=== PATIENT | male | born 1950 | race Caucasian/White ===

== ENCOUNTER 2018-10-23 07:09 | Inpatient (IN) | payer MEDICARE ==
[~2018-10-23] VITALS: Ht 188 cm; Wt 99.0 kg
[2018-10-23 07:57] LABS: BASOPHILS ABSOLUTE AUTO 0.04 K/mm3 (0.00-0.23); BASOPHILS PERCENT AUTO 1 % (0-2); EOSINOPHILS PERCENT AUTO 0 % (0-6); Hematocrit 25.8 % (37.0-53.0); Hemoglobin 8.2 g/dL (13.5-17.5); IMMATURE GRAN ABSOLUTE AUTO 0.05 K/mm3 (0.00-0.10); IMMATURE GRAN PERCENT AUTO 1 % (0-1); LYMPHOCYTES ABSOLUTE AUTO 0.38 K/mm3 (0.84-5.20); LYMPHOCYTES PERCENT AUTO 6 % (21-46); MONOCYTES ABSOLUTE AUTO 0.49 K/mm3 (0.16-1.47); MONOCYTES PERCENT AUTO 8 % (4-13); Mean Corpuscular HGB 26.6 pg (26.0-34.0); Mean Corpuscular HGB Conc 31.8 g/dL (31.5-36.5); Mean Corpuscular Volume 84 fL (80-100); Mean Platelet Volume 9.5 fL (9.1-12.4); NEUTROPHILS ABSOLUTE AUTO 5.16 K/mm3 (1.96-9.15); NEUTROPHILS PERCENT AUTO 84 % (41-73); Platelet Count 95 K/mm3 (150-400); RDW Coefficient Variation 14.6 % (11.7-14.2); RDW Standard Deviation 44.4 fL (35.1-46.3); Red Blood Cell Count 3.08 M/mm3 (4.30-5.90); White Blood Cell Count 6.12 K/mm3 (4.00-11.30)
[2018-10-23 08:12] LABS: Alanine Aminotransfer (ALT/SGP 17 U/L (12-78); Albumin, Blood 2.7 g/dL (3.4-5.0); Albumin/Globulin Ratio 0.5 (0.8-1.8); Alk Phos 102 U/L (50-136); Anion Gap 11 mmol/L (6-16); Aspartate Aminotrans (AST/SGOT 26 U/L (12-37); Bilirubin, Total 0.6 mg/dL (0.1-1.0); Blood Urea Nitrogen 31 mg/dL (8-24); Bun/Creatinine Ratio 24.8 (12.0-20.0); CO2, Blood 26 mmol/L (21-32); Calcium, Blood 8.4 mg/dL (8.5-10.1); Chloride, Blood 100 mmol/L (98-108); Creatinine, Blood 1.25 mg/dL (0.60-1.20); Globulin, Blood 5.6 g/dL (2.2-4.0); Glomerular Filtration Rate >60 (60-); Glucose, Blood 370 mg/dL (70-99); Potassium, Blood 4.9 mmol/L (3.5-5.5); Sodium, Blood 137 mmol/L (136-145); Total Protein, Blood 8.3 g/dL (6.4-8.2); Troponin I 0.097 ng/mL (0.000-0.040)
[2018-10-23 08:51] LABS: International Normalized Ratio 1.04
[2018-10-23] MEDS ORDERED: ABAT250V (09:10)
[2018-10-23 11:25] LABS: U Amphetamine Screen Not Detected; U Barbituate Screen Not Detected; U Benzodiazapine Screen Not Detected; U Buprenorphine Screen Not Detected; U Cannabinoids Screen Not Detected; U Cocaine Screen Not Detected; U Methadone Screen Not Detected; U Methamphetamine Screen Not Detected; U Opiates Screen Not Detected; U Oxycodone Screen Not Detected; U Phencyclidine Screen Not Detected; U Propoxyphene Screen Not Detected
[2018-10-23] MEDS ORDERED: **incomplete med rec (12:02)
--- NOTE | 2018-10-23 12:20 | NUR ---
PT TO ROOM 214 VIA GURNEY FROM ER. PT ALERT AND ORIENTED. PT WITH 18G IV TO LEFT WRIST, FLUSHES WELL.
--- NOTE | 2018-10-23 12:54 | NUR ---
NEW 18G IV TO RIGHT FA STARTED. PT AHSAN WELL. BLOOD DRAWN FOR LAB.
--- NOTE | 2018-10-23 13:11 | NUR ---
LAB AT BEDSIDE FOR CULTURES.
[2018-10-23] MEDS ORDERED: FURO40 PO (13:12)
[2018-10-23] MEDS ORDERED: Inderal 20 mg T20 MG PO (13:13)
[2018-10-23] MEDS ORDERED: Aldactone100 MG PO (13:14)
[2018-10-23] MEDS ORDERED: LACT10SY PO (13:15)
[2018-10-23 13:21] LABS: Hematocrit 27.9 % (37.0-53.0); Hemoglobin 8.8 g/dL (13.5-17.5)
[2018-10-23 14:03] LABS: Troponin I 0.113 ng/mL (0.000-0.040)
[2018-10-23 14:04] LABS: Percent Saturation 10.8 % (20.0-50.0)
--- NOTE | 2018-10-23 14:18 | NUR ---
IVF STARTED PER EMAR ORDERS. ROCEPHIN STARTED. PT STATES PAIN IS COMING BACK. PT NOT DUE FOR MEDS. WILL ADDRESS WITH PROVIDER. PT WATCHING TV.
--- NOTE | 2018-10-23 14:27 | NUR ---
CONSULT TO DR DU CALLED. SPOKE WITH OR STAFF.
--- NOTE | 2018-10-23 14:59 | NUR ---
abx started per emar orders.
--- NOTE | 2018-10-23 16:22 | NUR ---
DR DU TO ROOM FOR EVAL. PLAN FOR CT OF HIP, NPO AT MIDNIGHT. PLAN FOR POSS SURG TOMORROW.
--- NOTE | 2018-10-23 16:29 | NUR ---
Echocardiogram completed.
--- NOTE | 2018-10-23 16:40 | NUR ---
PT AWARE THAT HE WILL POSS HAVE SURGERY TOMORROW. PLAN TO PROVIDE DINNER TONIGHT. PT DENIES NEEDS.
--- NOTE | 2018-10-23 16:46 | NUR ---
pt medicated with 25mcg fentanyl prior to tx to ct.
--- NOTE | 2018-10-23 17:05 | NUR ---
PT RETURNED FROM IMAGING. ASSISTED BACK TO BED WITH MULT STAFF AND SLIDING SHEET. PT BOOSTED UP IN BED. ADDITIONAL PILLOW AND WARM BLANKET PROVIDED. PT WATCHING TV.
--- NOTE | 2018-10-23 17:27 | NUR ---
DINNER TRAY PROVIDED. denies needs.
--- NOTE | 2018-10-23 17:43 | NUR ---
pt eating. cbg 195, repeat lactic acid drawn and sent to lab. pt niece to room. provided phone number in case family needed. she is the only family member that is local.
--- NOTE | 2018-10-23 18:41 | NUR ---
WATER CUP FILLED. [facility] [place] [place] STUDENT TO ROOM FOR INTRODUCTION.
--- NOTE | 2018-10-23 18:51 | NUR ---
On this day 10/23/18 at 1845 this patient gave this nursing program coordinator verbal consent to access records and provide care on 10/24/18 from [id number].
[2018-10-24 05:22] LABS: BASOPHILS ABSOLUTE AUTO 0.06 K/mm3 (0.00-0.23); BASOPHILS PERCENT AUTO 1 % (0-2); EOSINOPHILS ABSOLUTE AUTO 0.16 K/mm3 (0.00-0.68); EOSINOPHILS PERCENT AUTO 2 % (0-6); Hematocrit 25.2 % (37.0-53.0); Hemoglobin 7.8 g/dL (13.5-17.5); IMMATURE GRAN ABSOLUTE AUTO 0.03 K/mm3 (0.00-0.10); IMMATURE GRAN PERCENT AUTO 0 % (0-1); LYMPHOCYTES PERCENT AUTO 13 % (21-46); MONOCYTES ABSOLUTE AUTO 0.59 K/mm3 (0.16-1.47); MONOCYTES PERCENT AUTO 8 % (4-13); Mean Corpuscular HGB 26.5 pg (26.0-34.0); Mean Corpuscular Volume 86 fL (80-100); Mean Platelet Volume 9.9 fL (9.1-12.4); NEUTROPHILS PERCENT AUTO 76 % (41-73); Platelet Count 85 K/mm3 (150-400); RDW Coefficient Variation 14.7 % (11.7-14.2); RDW Standard Deviation 45.7 fL (35.1-46.3); Red Blood Cell Count 2.94 M/mm3 (4.30-5.90); White Blood Cell Count 7.64 K/mm3 (4.00-11.30)
--- NOTE | 2018-10-24 05:42 | NUR ---
LYING IN SEMI FOWLERS WITH EYES CLOSED. PRN PAIN MEDS GIVEN NEEDED. DENIES FURTHER NEEDS AT THIS TIME. VERBALIZES THAT HE IS LOOKING FORWARD TO GETTING THIS HIP FIXED TODAY. SAFETY MEASURES IN PLACE. WILL CONTINUE TO MONITOR.
[2018-10-24 05:48] LABS: Bun/Creatinine Ratio 25.7 (12.0-20.0); Calcium, Blood 8.2 mg/dL (8.5-10.1); Creatinine, Blood 1.44 mg/dL (0.60-1.20); Potassium, Blood 4.9 mmol/L (3.5-5.5)
--- NOTE | 2018-10-24 07:00 | NUR ---
REPORT FROM NANETTE GRIFFIN. ASSUMED PT CARE.
--- NOTE | 2018-10-24 07:15 | NUR ---
PT LYING IN POSITION OF COMFORT. PT C/O PAIN TO RIGHT HIP 12/28. PT ALERT AND ORIENTED. ASSESSMENT CHARTED.
--- NOTE | 2018-10-24 07:45 | NUR ---
LETSER FIERRO TO ROOM TO UPDATE PT. PLAN TO NOTIFY HOSPITALIST OF H/H TODAY. ORTHO WANTS PT TRANSFUSED. NO LONGER NPO. PLAN TO HOLD SURGERY TODAY.
--- NOTE | 2018-10-24 08:00 | NUR ---
SPOKE WITH DR BECKMAN RE PT LAB VALUES TODAY AND PT C/O PAIN. DR BECKMAN TO ORDER TRANSFUSION AND EDIT FENTANYL.
--- NOTE | 2018-10-24 08:30 | NUR ---
LAB AT BEDSIDE TO DRAW TYPE AND SCREEN.
--- NOTE | 2018-10-24 08:50 | NUR ---
PT UNDERWEAR REMOVED TO PLACE ON BEDPAN. SOFT BROWN STOOL NOTED TO UNDERWEAR. REMOVED AND THROWN AWAY (WITH PT PERMISSION). PT PLACED ON BEDPAN WITH ASSISTANCE OF MEG.
--- NOTE | 2018-10-24 09:00 | NUR ---
PT WITH MODERATE SIZE SOFT BROWN STOOL. PERICARE DONE. BEDLINENS CHANGED. NEW GOWN PLACED. SPECIMEN SENT TO LAB.
--- NOTE | 2018-10-24 09:20 | NUR ---
PT MEDICATED WITH MEDS PER EMAR. FENTANYL 50MCG GIVEN FOR C/O PAIN. WILL REASSESS.
--- NOTE | 2018-10-24 10:00 | NUR ---
pt more comfortable at this time. pt denies needs.
--- NOTE | 2018-10-24 10:25 | NUR ---
ivf started. pt consented to blood products. hosp volunteer to room.
--- NOTE | 2018-10-24 10:36 | NUR ---
BLOOD STARTED, VERIFIED WITH HESHAM Bennett RN. VS CHARTED.
--- NOTE | 2018-10-24 12:27 | NUR ---
pt medicated with fentanyl for c/o pain. insulin given for cbg of 230. pt eating lunch.
--- NOTE | 2018-10-24 12:57 | NUR ---
UNIT ONE OF TWO COMPLETE. AHSAN WELL. PT ATE MOST OF LUNCH. PT ATTEMPT TO READ. DOZES OFF. STATES PAIN IMPROVED.
--- NOTE | 2018-10-24 13:08 | NUR ---
UNIT TWO OF TWO STARTED. PT RESTING IN POSITION OF COMFORT.
[2018-10-24 14:18] LABS: Stool Occult Blood Guaiac 1 Pos (Neg)
--- NOTE | 2018-10-24 16:12 | NUR ---
PT MEDICATED WITH 50MCG FENTANYL FOR PAIN 03/30. PT WITH SCANT BM, PERICARE PERFORMED WITH HELP OF [facility] STUDENTS. PT AHSAN OK.
--- NOTE | 2018-10-24 16:14 | NUR ---
Patient stated that he allowed this certified nursing attendant to be a part of his care on 10/25/18
--- NOTE | 2018-10-24 16:23 | NUR ---
PT TO IMAGING FOR PARACENTESIS.
--- NOTE | 2018-10-24 17:14 | NUR ---
MEDS STARTED PER EMAR. PT MORE COMFORTABLE.
--- NOTE | 2018-10-24 17:44 | NUR ---
3 UNITS INSULIM GIVEN. OTHER MEDS STARTED PER EMAR. PT EATING. NADN.
--- NOTE | 2018-10-24 18:19 | NUR ---
SCDS SET UP.
--- NOTE | 2018-10-24 19:14 | NUR ---
PT LYING IN POSITION OF COMFORT.
[2018-10-25 06:11] LABS: BASOPHILS ABSOLUTE AUTO 0.09 K/mm3 (0.00-0.23); BASOPHILS PERCENT AUTO 1 % (0-2); EOSINOPHILS ABSOLUTE AUTO 0.27 K/mm3 (0.00-0.68); EOSINOPHILS PERCENT AUTO 4 % (0-6); Hematocrit 28.3 % (37.0-53.0); Hemoglobin 9.1 g/dL (13.5-17.5); IMMATURE GRAN ABSOLUTE AUTO 0.07 K/mm3 (0.00-0.10); IMMATURE GRAN PERCENT AUTO 1 % (0-1); LYMPHOCYTES ABSOLUTE AUTO 0.96 K/mm3 (0.84-5.20); LYMPHOCYTES PERCENT AUTO 13 % (21-46); MONOCYTES ABSOLUTE AUTO 0.75 K/mm3 (0.16-1.47); MONOCYTES PERCENT AUTO 10 % (4-13); Mean Corpuscular HGB 27.7 pg (26.0-34.0); Mean Corpuscular HGB Conc 32.2 g/dL (31.5-36.5); Mean Corpuscular Volume 86 fL (80-100); Mean Platelet Volume 9.6 fL (9.1-12.4); NEUTROPHILS ABSOLUTE AUTO 5.22 K/mm3 (1.96-9.15); NEUTROPHILS PERCENT AUTO 71 % (41-73); Platelet Count 84 K/mm3 (150-400); RDW Standard Deviation 47.1 fL (35.1-46.3); Red Blood Cell Count 3.29 M/mm3 (4.30-5.90); White Blood Cell Count 7.36 K/mm3 (4.00-11.30)
[2018-10-25 06:30] LABS: Albumin, Blood 2.4 g/dL (3.4-5.0); Anion Gap 7 mmol/L (6-16); Blood Urea Nitrogen 37 mg/dL (8-24); Bun/Creatinine Ratio 26.2 (12.0-20.0); CO2, Blood 26 mmol/L (21-32); Calcium, Blood 8.3 mg/dL (8.5-10.1); Chloride, Blood 103 mmol/L (98-108); Creatinine, Blood 1.41 mg/dL (0.60-1.20); Glomerular Filtration Rate 53 (60-); Glucose, Blood 177 mg/dL (70-99); Phosphorus, Blood 3.1 mg/dL (2.5-4.9); Potassium, Blood 4.8 mmol/L (3.5-5.5); Sodium, Blood 136 mmol/L (136-145)
--- NOTE | 2018-10-25 07:36 | NUR ---
SUMMARY: NO ACUTE TOP CAGER NIGHT. PT VSS, A/O. TELE WNL. CSM INTACT TO R LEG, POSITIONED FOR COMFORT. PT GIVEN 50MCG FENTANYAL Q4. PT HAS DENIED NEED TO BE REPOSITIONED, STATES "IM OK" AND THAT HE REPOSITIONS HIMSELF. NO BM TONIGHT, PROTONIX DRIP INFUSING. NO S/SX OF ETOH WITHDRAWAL. WILL REPORT TO DAY RN
[2018-10-25 14:46] LABS: BASOPHILS ABSOLUTE AUTO 0.09 K/mm3 (0.00-0.23); BASOPHILS PERCENT AUTO 1 % (0-2); EOSINOPHILS ABSOLUTE AUTO 0.25 K/mm3 (0.00-0.68); EOSINOPHILS PERCENT AUTO 4 % (0-6); Hematocrit 26.8 % (37.0-53.0); Hemoglobin 8.7 g/dL (13.5-17.5); IMMATURE GRAN ABSOLUTE AUTO 0.06 K/mm3 (0.00-0.10); IMMATURE GRAN PERCENT AUTO 1 % (0-1); LYMPHOCYTES ABSOLUTE AUTO 0.83 K/mm3 (0.84-5.20); LYMPHOCYTES PERCENT AUTO 12 % (21-46); MONOCYTES ABSOLUTE AUTO 0.67 K/mm3 (0.16-1.47); MONOCYTES PERCENT AUTO 10 % (4-13); Mean Corpuscular HGB 28.2 pg (26.0-34.0); Mean Corpuscular HGB Conc 32.5 g/dL (31.5-36.5); Mean Corpuscular Volume 87 fL (80-100); Mean Platelet Volume 9.7 fL (9.1-12.4); NEUTROPHILS ABSOLUTE AUTO 4.84 K/mm3 (1.96-9.15); NEUTROPHILS PERCENT AUTO 72 % (41-73); Platelet Count 85 K/mm3 (150-400); RDW Coefficient Variation 15.1 % (11.7-14.2); RDW Standard Deviation 47.9 fL (35.1-46.3); Red Blood Cell Count 3.09 M/mm3 (4.30-5.90); White Blood Cell Count 6.74 K/mm3 (4.00-11.30)
--- NOTE | 2018-10-25 18:41 | NUR ---
PT TO IMAGING BY JUAN MIGUEL. PT TRANSFERRED WITH MULT ASSIST.
--- NOTE | 2018-10-25 18:41 | NUR ---
SHIFT SUMMARY PT NOW TOLERATING C.L. DR BLAIR AND OTHER DR'S IN TO SEE PT. SEE ORDERS. PT BEEN REPOSITIONED MULT TIMES, FEET ELEVATED ON PILLOW. PT VOIDING. PT HAD BM TODAY. PT REPORTS UNDERSTANDING OF NPO AFTER MN. PAS BEEN IN PLACE.
[2018-10-25 19:52] LABS: Source, Urine Catheter
[2018-10-25 20:32] LABS: Bilirubin, Urine Neg (Neg); Blood, Urine 5+ (Neg); Glucose Qualitative, Urine 4+ (Neg); Ketones, Urine Neg (Neg); Leukocyte Esterase, Urine 1+ (Neg); Nitrite, Urine Neg (Neg); Protein, Urine 2+ (Neg); Urobilinogen, Urine NORM (Normal)
[2018-10-25 20:54] LABS: Appearance, Urine Hazy (Clear); Color, Urine Yellow (P-Yellow)
[2018-10-25 20:55] LABS: Bacteria Rare /hpf; Squamous Epithelial Cells Few /hpf (Few)
--- NOTE | 2018-10-26 04:48 | NUR ---
SHIFT SUMMARY PT A&O X4 T/O SHIFT. POST R HIP FX; PT REPOSITIONED TOLERATED. REDNESS TO L HEEL NOTED; PT ALLOWED HEEL TO BE FLOATED. SCD'S TO BLE'S. PAIN MANGED PER EMAR. CHRONIC COUGH, LS DIM BILAT, RA; PT DENIES SOB; EDUCATION ON SEEP BREATHING AND I/S USE; I/S AT BEDSIDE. TELEMETRY IN PLACE; SR WITH OCC PAC'S. CALL LIGHT IN REACH; PT DEMONSTRATES USE. BLOOD SUGAR MANGED PER ORDERS/EMAR. PT NPO POST MIDNIGHT.
[2018-10-26 05:02] LABS: BASOPHILS ABSOLUTE AUTO 0.08 K/mm3 (0.00-0.23); BASOPHILS PERCENT AUTO 1 % (0-2); EOSINOPHILS ABSOLUTE AUTO 0.23 K/mm3 (0.00-0.68); EOSINOPHILS PERCENT AUTO 3 % (0-6); Hematocrit 27.3 % (37.0-53.0); Hemoglobin 8.6 g/dL (13.5-17.5); IMMATURE GRAN ABSOLUTE AUTO 0.06 K/mm3 (0.00-0.10); IMMATURE GRAN PERCENT AUTO 1 % (0-1); LYMPHOCYTES ABSOLUTE AUTO 1.11 K/mm3 (0.84-5.20); LYMPHOCYTES PERCENT AUTO 16 % (21-46); MONOCYTES ABSOLUTE AUTO 0.92 K/mm3 (0.16-1.47); MONOCYTES PERCENT AUTO 13 % (4-13); Mean Corpuscular HGB 27.4 pg (26.0-34.0); Mean Corpuscular HGB Conc 31.5 g/dL (31.5-36.5); Mean Corpuscular Volume 87 fL (80-100); Mean Platelet Volume 9.6 fL (9.1-12.4); NEUTROPHILS ABSOLUTE AUTO 4.62 K/mm3 (1.96-9.15); NEUTROPHILS PERCENT AUTO 66 % (41-73); Platelet Count 98 K/mm3 (150-400); RDW Coefficient Variation 15.3 % (11.7-14.2); RDW Standard Deviation 48.1 fL (35.1-46.3); Red Blood Cell Count 3.14 M/mm3 (4.30-5.90); White Blood Cell Count 7.02 K/mm3 (4.00-11.30)
[2018-10-26 05:25] LABS: Albumin, Blood 2.3 g/dL (3.4-5.0); Anion Gap 7 mmol/L (6-16); Blood Urea Nitrogen 36 mg/dL (8-24); Bun/Creatinine Ratio 25.7 (12.0-20.0); CO2, Blood 25 mmol/L (21-32); Calcium, Blood 8.1 mg/dL (8.5-10.1); Chloride, Blood 104 mmol/L (98-108); Glomerular Filtration Rate 54 (60-); Glucose, Blood 148 mg/dL (70-99); Phosphorus, Blood 3.2 mg/dL (2.5-4.9); Potassium, Blood 4.3 mmol/L (3.5-5.5); Sodium, Blood 136 mmol/L (136-145)
--- NOTE | 2018-10-26 11:43 | NUR ---
PATIENT TO DAY SURGERY AT THIS TIME.
--- NOTE | 2018-10-26 11:52 | NUR ---
History, Chart, Medications and Allergies reviewed before start of procedure. LS CLEAR UPPER AIRWAY, DIMINISHED IN THE BASES. IV START IN PROCESS BY GUANAKITO GRIFFIN.
--- NOTE | 2018-10-26 12:48 | NUR ---
[facility] KAVITHAO STARTED AT 1158 PRIOR TO ENTERING OR.
--- NOTE | 2018-10-26 15:50 | NUR ---
PATIENT RETURNED TO ROOM FROM PACU. ALERT, DENIES PAIN, NAUSEA AT THIS TIME. VSS. HRR. LS COARSE T/O. O2 @ 2L PER NC TO KEEP SATS > 90%. BT'S HYPO. SURGICAL TAPE/DRESSING TO R THIGH X 2, D&I. WIGGLES FEET. PAS IN PLACE. CIRC CHECKS WNL. CONT BIOX PLACED BY RT. CONT TO MONITOR.
--- NOTE | 2018-10-26 18:06 | NUR ---
SHIFT SUMMARY PATIENT STATES PAIN AT TOLERABLE LEVEL WITH IV AND PO PAIN MEDS. TOLERATING PO WELL. VSS. CIRC CHECKS TO RLE WNL; MOVES LEG. DRESSINGS D&I. IS ENCOURAGAED. NO C/O AT THIS TIME.
--- NOTE | 2018-10-27 04:05 | NUR ---
SHIFT SUMMARY PT A&O X4 T/O SHIFT. POD#1 R HIP NAILING; DRESSINGS TO R HIP CDI X2 SITES. PPX4; PT DENIES N/T IN EXT; ALL EXT PWD. PAIN MANGED PER EMAR. NAYA'S AND SCD'S TO BLE'S. PT DENIES NAUSA, SOB, AND CP T/O SHIFT. O2 WEANED TO 1L O2 VIA NC; CONT. OXIMETRY IN PLACE; SATURATION MID-90%. IS IN ROOM; PT ENC TO DEEP BREATH AND TURN. PT ASSISTED WITH REPOSITION PT ALLOWED. CALL LIGHT IN REACH; PT DEMONSTRATES USE. WCTM UNTIL REPORT TO DAY SHIFT RN.
[2018-10-27 05:31] LABS: BASOPHILS ABSOLUTE AUTO 0.04 K/mm3 (0.00-0.23); BASOPHILS PERCENT AUTO 1 % (0-2); EOSINOPHILS ABSOLUTE AUTO 0.03 K/mm3 (0.00-0.68); EOSINOPHILS PERCENT AUTO 0 % (0-6); Hematocrit 26.5 % (37.0-53.0); Hemoglobin 8.5 g/dL (13.5-17.5); IMMATURE GRAN ABSOLUTE AUTO 0.03 K/mm3 (0.00-0.10); IMMATURE GRAN PERCENT AUTO 0 % (0-1); LYMPHOCYTES PERCENT AUTO 10 % (21-46); MONOCYTES ABSOLUTE AUTO 0.89 K/mm3 (0.16-1.47); MONOCYTES PERCENT AUTO 13 % (4-13); Mean Corpuscular HGB 28.2 pg (26.0-34.0); Mean Corpuscular HGB Conc 32.1 g/dL (31.5-36.5); Mean Corpuscular Volume 88 fL (80-100); NEUTROPHILS ABSOLUTE AUTO 5.37 K/mm3 (1.96-9.15); NEUTROPHILS PERCENT AUTO 76 % (41-73); Platelet Count 98 K/mm3 (150-400); RDW Coefficient Variation 15.5 % (11.7-14.2); RDW Standard Deviation 49.5 fL (35.1-46.3); Red Blood Cell Count 3.01 M/mm3 (4.30-5.90); White Blood Cell Count 7.06 K/mm3 (4.00-11.30)
[2018-10-27 06:19] LABS: Bun/Creatinine Ratio 26.1 (12.0-20.0); Creatinine, Blood 1.53 mg/dL (0.60-1.20); Magnesium, Blood 1.9 mg/dL (1.6-2.4); Potassium, Blood 5.2 mmol/L (3.5-5.5)
[2018-10-27 08:13] LABS: HBSAG SCREEN Negative (Negative); HEP B CORE AB, TOT Negative (Negative); HEP C VIRUS AB 0.4 (0.0-0.9)
--- NOTE | 2018-10-27 17:38 | NUR ---
SUMMARY NO ACUTE CHANGES T/O SHIFT. PT PAIN WELL CONTROLLED PER EMAR. WORKED W/THERAPY. SAT UP IN CHAIR MOST OF SHIFT. COVERED CBG PER ORDERS. CALL LIGHT IN REACH.
[2018-10-28 05:50] LABS: BASOPHILS ABSOLUTE AUTO 0.07 K/mm3 (0.00-0.23); BASOPHILS PERCENT AUTO 1 % (0-2); EOSINOPHILS ABSOLUTE AUTO 0.29 K/mm3 (0.00-0.68); EOSINOPHILS PERCENT AUTO 4 % (0-6); Hematocrit 28.7 % (37.0-53.0); IMMATURE GRAN ABSOLUTE AUTO 0.04 K/mm3 (0.00-0.10); IMMATURE GRAN PERCENT AUTO 1 % (0-1); LYMPHOCYTES ABSOLUTE AUTO 0.89 K/mm3 (0.84-5.20); LYMPHOCYTES PERCENT AUTO 14 % (21-46); MONOCYTES ABSOLUTE AUTO 0.92 K/mm3 (0.16-1.47); MONOCYTES PERCENT AUTO 14 % (4-13); Mean Corpuscular HGB 27.4 pg (26.0-34.0); Mean Corpuscular HGB Conc 31.4 g/dL (31.5-36.5); Mean Corpuscular Volume 88 fL (80-100); NEUTROPHILS ABSOLUTE AUTO 4.33 K/mm3 (1.96-9.15); NEUTROPHILS PERCENT AUTO 66 % (41-73); Platelet Count 102 K/mm3 (150-400); Red Blood Cell Count 3.28 M/mm3 (4.30-5.90); White Blood Cell Count 6.54 K/mm3 (4.00-11.30)
--- NOTE | 2018-10-28 17:18 | NUR ---
SUMMARY NO ACUTE CHANGES T/O SHIFT. PT VOIDING WELL AND HAD BM. PAIN WELL CONTROLLED PER PO PAIN MEDS PER EMAR. WORKED W/THERAPY. SAT UP IN CHAIR FOR SEVERAL HOURS. USES CALL LIGHT APPROPRIATELY. IVS INFUSING W/O DIFFICULTY.
--- NOTE | 2018-10-29 06:06 | NUR ---
SHIFT SUMMARY: NO ACUTE CHANGES THIS SHIFT. TREATED 2X FOR PAIN c 10MG OXYCODONE. 2 PER ASSIST c TRANSFERS PT IS UNABLE TO BARE WT ON RLE. CIWA CONT TO BE NEG THIS SHIFT. PT IS ON 0.5 L VIA NC. PM CBG @ 184; 3 UNITS OF INSULIN ADMINISTERED PER MED SS. R HIP DRESSING IS C/D/I. SANDOSTATIN RUNNING @ 25 ML/HR. PT AWAITING SNF PLACEMENT. WILL CONT TO MONITOR AND PROVIDE CARE UNTIL PRESUMED BY ONCOMING RN.
--- NOTE | 2018-10-29 17:00 | NUR ---
DISCHARGE REPORT CALLED TO SNF. PT AGREEABLE FOR D/C. MOD ASSIST TO TRANSFER TO W/C.
== END 2018-10-29 16:55 | DRG 480 ==
LOC: ER 07:09 → SURS 11:54
PROVIDERS: Hospitalist; Internal Medicine Gastroenterology; Orthopaedic Surgery; Physician Assistant; ADMIT Family Medicine
PROC: 30233N1 Transfusion of Nonautologous Red Blood Cells into Peripheral Vein, Percutaneous Approach (ICD-10-PCS; 2018-10-24)
PROC: 0QS636Z Reposition Right Upper Femur with Intramedullary Internal Fixation Device, Percutaneous Approach (ICD-10-PCS; principal; 2018-10-26 12:30)
DX: S72.141A Displaced intertrochanteric fracture of right femur, initial encounter for closed fracture (principal); A41.9 Sepsis, unspecified organism; J18.9 Pneumonia, unspecified organism; R65.20 Severe sepsis without septic shock; I24.8 Other forms of acute ischemic heart disease; K92.2 Gastrointestinal hemorrhage, unspecified; N17.9 Acute kidney failure, unspecified; D62 Acute posthemorrhagic anemia; D69.6 Thrombocytopenia, unspecified; F10.10 Alcohol abuse, uncomplicated; W18.30XA Fall on same level, unspecified, initial encounter; K70.31 Alcoholic cirrhosis of liver with ascites; Z66 Do not resuscitate; B19.20 Unspecified viral hepatitis C without hepatic coma; D50.9 Iron deficiency anemia, unspecified; E11.22 Type 2 diabetes mellitus with diabetic chronic kidney disease; N18.9 Chronic kidney disease, unspecified
CPT/HCPCS: 36415; 71045; 71046; 72192; 73502; 73552; 76705; 80048; 80053; 80069; 81001; 82105; 82270; 82607; 82728; 82746; 82947; 83036; 83540; 83550; 83605; 83735; 84145; 84300; 84484; 85014; 85018; 85025; 85027; 85610; 86317; 86704; 86708; 86803; 86850; 86900; 86901; 86923; 87040; 87086; 87340; 93005; 93010; 93306; 94762; 96374; 96375; 97110; 97116; 97162; 97167; 97530; 99285-25; C1713; C1769; C9113; G0480; J0456; J0696; J1100; J1815; J2250; J2270; J2405; J2710; J3010; J3370; J3480; J7030; J7050; J7120; P9016

== ENCOUNTER 2019-05-14 10:31 | Inpatient (IN) | payer OTHER ==
[~2019-05-14] VITALS: Ht 188 cm; Wt 109.2 kg
[~2019-05-14 10:31] MED LIST: **incomplete med rec; ABAT250V; Aldactone100 MG PO; Augmentin 875-1 EACH PO; FERSU300 PO; FURO40 PO; Inderal 20 mg T20 MG PO; LACT10SY PO; Norco 7.5-3251 EACH PO; PANT20 PO
[2019-05-14 11:40] LABS: Source, Urine Catheter
[2019-05-14 11:42] LABS: Bilirubin, Urine Neg (Neg); Blood, Urine 1+ (Neg); Glucose Qualitative, Urine Neg (Neg); Ketones, Urine 1+ (Neg); Leukocyte Esterase, Urine 1+ (Neg); Nitrite, Urine Neg (Neg); Protein, Urine Neg (Neg); Specific Gravity, Urine 1.025 (1.003-1.022); Urobilinogen, Urine NORM (Normal)
[2019-05-14 11:47] LABS: BASOPHILS PERCENT AUTO 2 % (0-2); EOSINOPHILS ABSOLUTE AUTO 0.16 K/mm3 (0.00-0.68); EOSINOPHILS PERCENT AUTO 2 % (0-6); Hematocrit 28.4 % (37.0-53.0); IMMATURE GRAN ABSOLUTE AUTO 0.02 K/mm3 (0.00-0.10); IMMATURE GRAN PERCENT AUTO 0 % (0-1); LYMPHOCYTES ABSOLUTE AUTO 0.86 K/mm3 (0.84-5.20); LYMPHOCYTES PERCENT AUTO 13 % (21-46); MONOCYTES ABSOLUTE AUTO 0.63 K/mm3 (0.16-1.47); MONOCYTES PERCENT AUTO 9 % (4-13); Mean Corpuscular HGB 29.4 pg (26.0-34.0); Mean Corpuscular HGB Conc 31.7 g/dL (31.5-36.5); Mean Corpuscular Volume 93 fL (80-100); Mean Platelet Volume 9.6 fL (9.1-12.4); NEUTROPHILS ABSOLUTE AUTO 5.02 K/mm3 (1.96-9.15); NEUTROPHILS PERCENT AUTO 74 % (41-73); Platelet Count 104 K/mm3 (150-400); RDW Coefficient Variation 16.2 % (11.7-14.2); RDW Standard Deviation 53.9 fL (35.1-46.3); Red Blood Cell Count 3.06 M/mm3 (4.30-5.90); White Blood Cell Count 6.79 K/mm3 (4.00-11.30)
[2019-05-14 12:00] LABS: Albumin, Blood 2.2 g/dL (3.4-5.0); Albumin/Globulin Ratio 0.4 (0.8-1.8); Bilirubin, Total 0.8 mg/dL (0.1-1.0); Bun/Creatinine Ratio 10.5 (12.0-20.0); Calcium, Blood 8.1 mg/dL (8.5-10.1); Creatinine, Blood 3.05 mg/dL (0.60-1.20); Globulin, Blood 5.4 g/dL (2.2-4.0); Potassium, Blood 3.7 mmol/L (3.5-5.5); Total Protein, Blood 7.6 g/dL (6.4-8.2)
[2019-05-14 12:03] LABS: Appearance, Urine Clear (Clear); Color, Urine Yellow (P-Yellow)
[2019-05-14 12:04] LABS: Bacteria Rare /hpf; Granular Casts 0-2 /lpf (0); Hyaline Casts 0-2 /lpf (0-2); Red Blood Cells, Urine 0-2 /hpf (0-2); Squamous Epithelial Cells Not Seen /hpf (Few)
[2019-05-14] MEDS ORDERED: Augmentin 875-1 EACH PO (12:42)
[2019-05-14] MEDS ORDERED: HYDR1TAB94 PO (12:43)
[2019-05-14] MEDS ORDERED: ASCO500 PO (12:43)
--- NOTE | 2019-05-14 17:48 | NUR ---
PT ARRIVED TO THE FLOOR THIS AFTERNOON. PT ALERT, ORIENTED, AND COOPERATIVE. PT STATES PAIN IN THE RIGHT HIP. PT HAS URINARY CATHETER IN PLACE AFTER URINARY RETENTION THIS AFTERNOON. PT UP IN BED WITH SISTER AT BEDSIDE. PT STATES NO ADDITIONAL NEEDS AT THIS TIME.
--- NOTE | 2019-05-14 18:08 | NUR ---
TELEMETRY CALLED, PT HR TRENDING UP, IN THE 130'S. PT ASSESSED, ASYMPTOMATIC, NO PAIN. DR NOVA NOTIFIED, HE STATED HE WILL ORDER METOPROLOL.
--- NOTE | 2019-05-15 05:08 | NUR ---
SHIFT SUMMARY: LESLIE IS ALERT ORIENTED MALE, WHO IS A 1-2 PERSON ASSIST IN THE ROOM. HE HAS BEEN PLEANSANT ALL NIGHT, WITH SLEEPING OFF AND ON. COMPLAINS OF PAIN IN RIGHT HIP FROM RECENT HIP SURGERY THAT DID NOT HAVE GOOD SUCCESS. ESPARZA HAS REMAINED PATENT AND DRAINING. HE HAS NOT HAD ANY ACUTE CHANGES OR CONCERNS THIS SHIFT. MEDS WERE GIVEN PER EMAR. NORCO WAS GIVEN TWICE THIS SHIFT. METAPROLOL WAS GIVEN WITH SUCCESS OF A DECREASE HR OF 93. WILL REPORT TO DAY SHIFT RN.
[2019-05-15 05:26] LABS: Bun/Creatinine Ratio 14.3 (12.0-20.0); Creatinine, Blood 2.73 mg/dL (0.60-1.20); Potassium, Blood 4.3 mmol/L (3.5-5.5)
--- NOTE | 2019-05-15 18:16 | NUR ---
PT ALERT AND ORIENTED THROUGHOUT THIS SHIFT. PT COOPERATIVE WITH CARE. PT URINE OUTPUT APPROXIMATELY [address] NOVA HAS A UROLOGY CONSULT ORDERED. PT UNABLE TO PROVIDE SELF CARE DUE TO PAIN IN HIS RT HIP. PT CALM THROUGHOUT THIS SHIFT STATING NO ADDITIONAL NEEDS. WILL CONTINUE TO MONITOR.
[2019-05-16 05:08] LABS: Bun/Creatinine Ratio 15.1 (12.0-20.0); Calcium, Blood 8.1 mg/dL (8.5-10.1); Creatinine, Blood 2.79 mg/dL (0.60-1.20)
--- NOTE | 2019-05-16 07:29 | NUR ---
ASSUMED CARE OF PT- BEDSIDE REPORT COMPLETE WITH NIGHT RN LASHON. PER REPORT PT HAD AN EPISODE OF SEVERE SOB. DR NOTIFIED AND A STAT DOSE OF 40MG IV LASIX WAS ADMINISTERED. PT STATES BREATHING IS MUCH BETTER. PT HAS A ESPARZA IN PLACE THAT IS PATENT AND DRAINING. PT HAS EXTREME EDEMA IN THIGHS/TRUNCK/GROIN/SCROTUM. EDEMA IS VERY PAINFUL WITH MOVEMENT. PER REPORT NIGHT RN STATES TRUNCKAL EDEMA INCREASED FROM THE BASE OF THE RIBS UP TO THE 5TH INTERCOSTAL WHEN THE PT C/O SOB. EDEMA STILL PRESENT HOWEVER PT BREATHING HAS IMPROVED. PT WAS SEEN BY DR LICEA LAST NIGHT AND IS GOING FOR A SCOPE THIS AFTERNOON NPO AT 1400. PT IS AWARE. LABS SENT OUT FOR R/O HEPATITIS PT HAS ASCITES (PER REPORT) THAT MAY NEED TO BE TAPPED.
--- NOTE | 2019-05-16 07:52 | NUR ---
SHIFT SUMMARY: LESLIE IS A 69 Y/O MALE WHO IS A 1-2 PERSON ASSIST IN THE ROOM, HAS BEEN PLEASANT AND COOPERATIVE ALL NIGHT, SLEEPING OFF AND ON. COMPAINED OF PAIN IN THE RIGHT HIP WITH USE OF PAIN MEDS X2 THIS NIGHT. PATIENT CALLED RN TO ROOM THIS AM WITH REPORTS OF SOB AND DIFFICULTY GETTING HIS BREATH, INCREASE IN PAIN TO THE GROIN AREA. EDEMA HAD PROGRESSED FROM HIP LINE TO BREAST LINE, 4+ EDEMA, REPOSITIONED HIM, SATS AT 95%, BUT STILL COULD NOT CATCH HIS BREATH, URINE OUTPUT ONLY 100CC IN THE LAST 12 HOURS. CALLED MD AND GOT AN ORDER FOR 1 X LASIX, ADMINISTERED MEDS PER EMAR. AFTER 30 MINUTES HE REPORTED HE STARTED TO FEEL BETTER AND LESS PAIN IN GROIN, URINE OUTPUT WAS ANOTHER 100CC. PAIN MED WAS GIVEN. CALL LIGHT REMAINED IN REACH AND REPORT WAS GIVEN TO DAY SHIFT RN.
[2019-05-16 12:04] LABS: Automated BF WBC Count 0.064 K/mm3 (0-999); Body Fluid WBC Count 64 /mm3 (0-999)
[2019-05-16 12:17] LABS: Albumin, Body Fluid 0.4 g/dL; Glucose, Body Fluid 148 mg/dL; Lactate Dehydrogenase, Body Fl 56 U/L; Protein, Body Fluid 1.1 g/dL; pH, Body Fluid 7.7
[2019-05-16 12:49] LABS: RBC Count, Body Fluid 85 /mm3 (0-0)
[2019-05-16 12:56] LABS: Albumin, Blood 3.4 g/dL (3.4-5.0)
[2019-05-16 13:44] LABS: Total Cell Count, Body Fluid 100
[2019-05-16 13:45] LABS: Appearance, Body Fluid Hazy (Clear); Color, Body Fluid Yellow (None-Yellow)
--- NOTE | 2019-05-16 18:29 | NUR ---
"DAY SURGERY RN | REPORT TO DESEAN GRIFFIN."
--- NOTE | 2019-05-16 18:56 | NUR ---
SHIFT SUMMARY- PT ALERT AND ORIENTED. SPOKE TO DR MANCUSO THIS AM ABOUT THE SOB PT HAD LAST NIGHT, ORDERED PARACENTESIS AND THAT WAS DONE THIS AM, REMOVED 4L OF FLUID. PT ON IV ALBUMIN SCHEDULED. SPOKE TO DR MANCUSO HE WANTS STAFF TO HOLD THE MORNING DOSE UNTIL HE ROUNDS ON THE PT. PT HAS NOT RECIEVED ANY DIURETICS D/T RENAL FUNCTION. PT WENT DOWN FOR EGD THIS EVENING EVENING DOSE CARVEDILOL HELD PER DR MANCUSO.
--- NOTE | 2019-05-16 19:00 | NUR ---
05/16/191899 Meghan Major DR HERE TO PROVIDE ANESTHESIA CARE, PLEASE SEE RECORD. History, Chart, Medications and Allergies reviewed before start of procedure. MONITOR INTACT WITH CONTINUOUS PULSE OXIMETRY AND INTERMITTENT BP. O2 VIA POM INTACT THROUGHOUT SEDATION/PROCEDURE. Bite Block Placed.
[2019-05-17 04:07] LABS: HBSAG SCREEN Negative (Negative); HCV ANTIBODY <0.1 (0.0-0.9); HEP B CORE AB, TOT Negative (Negative)
[2019-05-17 05:10] LABS: BASOPHILS ABSOLUTE AUTO 0.02 K/mm3 (0.00-0.23); BASOPHILS PERCENT AUTO 0 % (0-2); EOSINOPHILS ABSOLUTE AUTO 0.17 K/mm3 (0.00-0.68); EOSINOPHILS PERCENT AUTO 3 % (0-6); Hematocrit 24.7 % (37.0-53.0); Hemoglobin 7.9 g/dL (13.5-17.5); IMMATURE GRAN ABSOLUTE AUTO 0.02 K/mm3 (0.00-0.10); IMMATURE GRAN PERCENT AUTO 0 % (0-1); LYMPHOCYTES PERCENT AUTO 14 % (21-46); MONOCYTES ABSOLUTE AUTO 0.41 K/mm3 (0.16-1.47); MONOCYTES PERCENT AUTO 8 % (4-13); Mean Corpuscular HGB 30.2 pg (26.0-34.0); Mean Corpuscular Volume 94 fL (80-100); Mean Platelet Volume 10.2 fL (9.1-12.4); NEUTROPHILS ABSOLUTE AUTO 3.76 K/mm3 (1.96-9.15); NEUTROPHILS PERCENT AUTO 74 % (41-73); Platelet Count 53 K/mm3 (150-400); RDW Coefficient Variation 16.5 % (11.7-14.2); RDW Standard Deviation 54.9 fL (35.1-46.3); Red Blood Cell Count 2.62 M/mm3 (4.30-5.90); White Blood Cell Count 5.08 K/mm3 (4.00-11.30)
[2019-05-17 05:28] LABS: Bun/Creatinine Ratio 15.4 (12.0-20.0); Calcium, Blood 8.3 mg/dL (8.5-10.1); Creatinine, Blood 2.79 mg/dL (0.60-1.20); Potassium, Blood 3.8 mmol/L (3.5-5.5)
--- NOTE | 2019-05-17 06:29 | NUR ---
SWIMMING POOL INSTALLER SUMMARY PT AAOX4 AND PLEASANT. ON BEDREST BUT CALLS APPROPRIATELY FOR ASSITANCE. TREATED FOR PAIN X2 WITH NORCO. PT HAS BEEN ABLE TO REST MOST OF THE NIGHT. AT VERY START OF SHIFT PT RETURNED FROM EGD, DR LICEA CAME IN TO SEE PT SHORTLY AFTER PT ARRIVED BACK TO ROOM. VSS, WILL CONTINUE TO MONITOR.
--- NOTE | 2019-05-17 10:38 | NUR ---
SPOKE TO DR SYDNEY MANCUSO HAD STAFF HOLD ALBUMIN THIS MORNING UNTIL HE AND KAROLINA SAW THE PT. DR TURCIOS WAS CHANGING THE ORDERS FOR THE ALBUMIN SO CURRENT DOSE WAS HELD. SPOKE TO DR TURCIOS AFTER A CALL FROM PHARMACY REQUESTING CLARIFICATION DOSE WAS REDUCED TO 1/2 OF THE PREVIOUS DOSE SO THE 0900 DOSE THAT WAS HELD SHOULD BE GIVEN. DR TURCIOS STATED TO HOLD THAT DOSE THIS MORNING AND JUST GIVE THE 1800 DOSE THIS EVENING SHE ALSO STATED TO STOP IVF AFTER 1 BAG.
--- NOTE | 2019-05-17 16:25 | NUR ---
SHIFT SUMMARY- PT WAS SEEN BY DR TURCIOS, DR LICEA AND DR MANCUSO TODAY. IVF STARTED FOR 1 LITRE ONLY. PT HAS A ESPARZA THAT IS PATENT AND DRAINING DARK YELLOW URINE IN VERY SMALL QUANTITY. PITTING EDEMA SEEMS TO BE A LITTLE BETTER +2 IN JOSEPHINE OF +3 BUT STILL PRESENT. PT ALERT AND ORIENTED STATED HE IS ABLE TO MOVE HIS LEGS A LITTLE EASIER. PT WILL GET HIS EVENING DOSE OF ALBUMIN, THIS MAY IMPROVE OUTPUT. PT IS SLIGHTLY INCONTINENT OF STOOL. ONCE HE STARTS TO GO HE HAS SOME CONTROL AND CAN CALL FOR THE BEDPAN. PT IS A 1-2 PERSON ASSIST TO ROLL AND CHANGE.
[2019-05-18 04:34] LABS: BASOPHILS ABSOLUTE AUTO 0.03 K/mm3 (0.00-0.23); BASOPHILS PERCENT AUTO 1 % (0-2); EOSINOPHILS ABSOLUTE AUTO 0.16 K/mm3 (0.00-0.68); EOSINOPHILS PERCENT AUTO 4 % (0-6); Hematocrit 23.3 % (37.0-53.0); Hemoglobin 7.4 g/dL (13.5-17.5); IMMATURE GRAN ABSOLUTE AUTO 0.02 K/mm3 (0.00-0.10); IMMATURE GRAN PERCENT AUTO 1 % (0-1); LYMPHOCYTES ABSOLUTE AUTO 0.83 K/mm3 (0.84-5.20); LYMPHOCYTES PERCENT AUTO 19 % (21-46); MONOCYTES ABSOLUTE AUTO 0.47 K/mm3 (0.16-1.47); MONOCYTES PERCENT AUTO 11 % (4-13); Mean Corpuscular HGB Conc 31.8 g/dL (31.5-36.5); Mean Corpuscular Volume 94 fL (80-100); Mean Platelet Volume 10.5 fL (9.1-12.4); NEUTROPHILS ABSOLUTE AUTO 2.92 K/mm3 (1.96-9.15); NEUTROPHILS PERCENT AUTO 66 % (41-73); Platelet Count 56 K/mm3 (150-400); RDW Coefficient Variation 16.8 % (11.7-14.2); RDW Standard Deviation 54.4 fL (35.1-46.3); Red Blood Cell Count 2.47 M/mm3 (4.30-5.90); White Blood Cell Count 4.43 K/mm3 (4.00-11.30)
[2019-05-18 04:50] LABS: Bun/Creatinine Ratio 16.8 (12.0-20.0); Calcium, Blood 8.2 mg/dL (8.5-10.1); Creatinine, Blood 2.62 mg/dL (0.60-1.20); Potassium, Blood 3.9 mmol/L (3.5-5.5)
--- NOTE | 2019-05-18 06:41 | NUR ---
SHIFT SUMMARY: PT IS ALERT AND ORIENTED. PT IS ON BEDREST ORDERED. PT CALLS APPROPRIATELY. PT REPORTS ONGOING HIP PAIN ON SEVERAL OCCASIONS, MEDICATING PER EMAR. PT DENIES NAUSEA, VOMITING, AND SOB. PT'S HBG 7.4 THIS AM DOWN FROM 7.9, CALLED DR. REMY WHO GAVE ORDERS TO CONTINUE TO MONITOR AND DRAW LABS AGAIN AT 1000. PT SLEPT MUCH OF THE NIGHT WHEN NOT DISTURBED. BED IN LOW POSITION, CALL LIGHT WITHIN REACH. WILL REPORT TO DAY NURSE.
[2019-05-18 09:08] LABS: Percent Saturation 16.1 % (20.0-50.0)
--- NOTE | 2019-05-18 17:19 | NUR ---
V-TACH ULTRASONIC SOLDERERJUDITH, CALLED TO REPORT A RUN OF 6 BEATS OF V-TACH. PATIENT DENIED ANY CHANGES TO HIS STATUS. DENIED PAIN OR ANY SENSATIONS IN HIS CHEST. DENIED SOB OR LIGHTHEADEDNESS. BLOOD PRESSURE AND PULSE STABLE (120/82 AND 89BPM). CUED PATIENT TO ALERT STAFF IF HE DID EXPERIENCE ANY CHANGES.
--- NOTE | 2019-05-18 19:20 | NUR ---
END OF SHIFT SUMMARY: PATIENT MEDICATED TWICE FOR PAIN PER PRNS TODAY. PATIENT IS RELUCTANT TO ALLOW REPOSITIONING. PATIENT IS WORKING ON INCREASING PO FLUID INTAKE. IMPROVED COLOR OF URINE THROUGHOUT THE DAY (MEDIATION COMMISSIONER YELLOW IN THE TUBE). PATIENT HAS A MINIMAL APPETITE BUT REPORTS THAT IT IS IMPROVED. DENIES NAUSEA. PATIENT EXPERIENCED A 6 BEAT RUN OF V-TACH THIS AFTERNOON. DR. MANCUSO NOTIFIED. NO NEW ORDERS. PATIENT DENIED ANY SIGNS OR SYMPTOMS OR CHANGES. VITALS STABLE. AT THE END OF THE SHIFT, TELEMETRY CALLED TO REPORT AN INCREASE IN PATIENT'S HEARTRATE UP TO 120S. PATIENT EATING DINNER. DENIES ANY SOB, CHEST PAIN, DIZZINESS OR CHANGES TO STATUS. PATIENT STABILIZED INTO THE 90S. PATIENT IS HOPEFUL THAT HIS CURRENT PROBLEMS WILL RESOLVE SO THAT HE CAN HAVE A HIP REPAIR.
--- NOTE | 2019-05-19 03:41 | NUR ---
SHIFT SUMMARY: PT IS ALERT AND ORIENTED. PT IS CALM, FRIENDLY, AND COOPERATIVE WITH CARE. PT CALLS APPROPRIATELY. PT KEPT ON BEDREST ORDERED. PT CONTINUES TO HAVE R. HIP PAIN, MEDICATING PER EMAR. PT DENIES NAUSEA, VOMITING, AND SOB. ESPARZA PATENT AND DRAINING. PT SLEPT MUCH OF THE NIGHT. NO ACUTE CHANGES OR COMPLICATIONS THIS SHIFT. BED IN LOW POSITION, CALL LIGHT WITHIN REACH, WILL CONTINUE TO MONITOR.
[2019-05-19 04:41] LABS: BASOPHILS ABSOLUTE AUTO 0.03 K/mm3 (0.00-0.23); BASOPHILS PERCENT AUTO 1 % (0-2); EOSINOPHILS ABSOLUTE AUTO 0.17 K/mm3 (0.00-0.68); EOSINOPHILS PERCENT AUTO 4 % (0-6); Hematocrit 24.4 % (37.0-53.0); Hemoglobin 7.8 g/dL (13.5-17.5); IMMATURE GRAN ABSOLUTE AUTO 0.01 K/mm3 (0.00-0.10); IMMATURE GRAN PERCENT AUTO 0 % (0-1); LYMPHOCYTES PERCENT AUTO 18 % (21-46); MONOCYTES ABSOLUTE AUTO 0.67 K/mm3 (0.16-1.47); MONOCYTES PERCENT AUTO 15 % (4-13); Mean Corpuscular HGB 30.1 pg (26.0-34.0); Mean Corpuscular Volume 94 fL (80-100); Mean Platelet Volume 9.8 fL (9.1-12.4); NEUTROPHILS ABSOLUTE AUTO 2.81 K/mm3 (1.96-9.15); NEUTROPHILS PERCENT AUTO 63 % (41-73); Platelet Count 63 K/mm3 (150-400); RDW Coefficient Variation 17.4 % (11.7-14.2); RDW Standard Deviation 57.6 fL (35.1-46.3); Red Blood Cell Count 2.59 M/mm3 (4.30-5.90); White Blood Cell Count 4.49 K/mm3 (4.00-11.30)
[2019-05-19 05:06] LABS: Bun/Creatinine Ratio 17.4 (12.0-20.0); Calcium, Blood 8.4 mg/dL (8.5-10.1); Creatinine, Blood 2.58 mg/dL (0.60-1.20); Potassium, Blood 3.8 mmol/L (3.5-5.5)
--- NOTE | 2019-05-19 18:41 | NUR ---
PT ARRIVED BACK FROM EGD 163, AMBULATORY AND UP IN A CHAIR. SON IN THE ROOM ASSISTING FATHER. PT IS GETTING HIS COAT ON AND STATES HE WANTS TO GET OUT OF HERE. PT ENCOURAGED AND REORIENTED TO SITUATION AND PT IS AGREEABLE TO SOME TREATMENTS, BUT REFUSED TELE AND IVF INITIALLY. PT IS SUSPICIOUS. WILL PEDRO CLOSE FOR SAFETY AND VS POST PROCEDURE.
--- NOTE | 2019-05-19 18:44 | NUR ---
SUMM-PT ALERT AND ORIENTED. BEDREST MOST OF THE DAY. UNABLE TO BEAR WT ON R HIP RELATED TO TKA NON-HEALING. TOLERATING FOOD AND FLUIDS. VICODIN FOR PAIN. CONT MOD EDEMA. ESPARZA FOR RETENTION. TELE Alyse FUENTES. WILL REPORT TO VICKI GRIFFIN.
--- NOTE | 2019-05-20 04:45 | NUR ---
SHIFT SUMMARY- PT. RESTED WELL T/O THE NIGHT. NO APPARENT DISTRESS NOTED. PT. IS NON-WT. BEARING ON THE RT HIP DUE TO NON-HEALING TKA. C/O PAIN 03/30, PAIN MED GIVEN PER EMAR. ESPARZA CATHETER IN PLACE FOR RETENTION. DENIED ANY FURTHER NEEDS T/O THE SHIFT. VSS. CALL LIGHT WITHIN RECAH AND SIDE RAILS UP X2. WILL CONT TO MONITOR.
[2019-05-20 08:33] LABS: Bun/Creatinine Ratio 18.8 (12.0-20.0); Calcium, Blood 8.5 mg/dL (8.5-10.1); Creatinine, Blood 2.45 mg/dL (0.60-1.20)
--- NOTE | 2019-05-20 17:44 | NUR ---
SHIFT SUMMARY PT HAS HAD NO NEW CHANGES THIS SHIFT. MEDICATED FOR PAIN X2 THIS SHIFT FOR RIGHT HIP PAIN. PT WORKED WITH OCCUPATIONAL AND PHYSICAL THERAPY THIS SHIFT. PT SAT IN CHAIR BREIFLY. PT DECLINED TO GET UP IN CHAIR FOR DINNER. THIS RN ENCOURAGED PT TO SIT IN CHAIR AND EDUCATED HIM ON THE IMPORTANCE OF SITTING UP. PT'S ESPARZA REMOVED THIS AFTERNOON AND PT VOIDED THIS EVENING. NO DISTRESS AT THIS TIME. CALL LIGHT IN REACH. WILL CONTINUE TO MONITOR AND REPORT TO ONCOMING RN.
[2019-05-21 04:53] LABS: BASOPHILS ABSOLUTE AUTO 0.04 K/mm3 (0.00-0.23); BASOPHILS PERCENT AUTO 1 % (0-2); EOSINOPHILS ABSOLUTE AUTO 0.17 K/mm3 (0.00-0.68); EOSINOPHILS PERCENT AUTO 3 % (0-6); Hematocrit 23.9 % (37.0-53.0); Hemoglobin 7.5 g/dL (13.5-17.5); IMMATURE GRAN ABSOLUTE AUTO 0.03 K/mm3 (0.00-0.10); IMMATURE GRAN PERCENT AUTO 1 % (0-1); LYMPHOCYTES ABSOLUTE AUTO 0.97 K/mm3 (0.84-5.20); LYMPHOCYTES PERCENT AUTO 19 % (21-46); MONOCYTES PERCENT AUTO 18 % (4-13); Mean Corpuscular HGB 29.5 pg (26.0-34.0); Mean Corpuscular HGB Conc 31.4 g/dL (31.5-36.5); Mean Corpuscular Volume 94 fL (80-100); Mean Platelet Volume 10.1 fL (9.1-12.4); NEUTROPHILS ABSOLUTE AUTO 2.94 K/mm3 (1.96-9.15); NEUTROPHILS PERCENT AUTO 58 % (41-73); Platelet Count 95 K/mm3 (150-400); RDW Coefficient Variation 17.4 % (11.7-14.2); RDW Standard Deviation 58.7 fL (35.1-46.3); Red Blood Cell Count 2.54 M/mm3 (4.30-5.90); White Blood Cell Count 5.05 K/mm3 (4.00-11.30)
--- NOTE | 2019-05-21 05:12 | NUR ---
SHIFT SUMMARY- NO ACUTE EVENTS OVERNIGHT. PT. C/O RT HIP PAIN. PAIN MED GIVEN X2 THIS SHIFT. SLEPT ON/OFF T/O THE NIGHT, NO APPARENT DISTRESS NOTED. AWAITING ON F/U WITH ORTHO. DENIED ANY OTHER NEEDS T/O THE NIGHT. CALL LIGHT WITHIN REACH AND SIDE RAILS UP X2. WILL CONT TO MONITOR.
[2019-05-21 05:16] LABS: Bun/Creatinine Ratio 17.9 (12.0-20.0); Calcium, Blood 8.3 mg/dL (8.5-10.1); Creatinine, Blood 2.62 mg/dL (0.60-1.20); Potassium, Blood 4.3 mmol/L (3.5-5.5)
--- NOTE | 2019-05-21 13:35 | NUR ---
CALLED HOSPITALIST TELEMETRY DC'D TODAY.
--- NOTE | 2019-05-21 18:41 | NUR ---
SHIFT SUMMARY ETOH CIRRHOSIS. HX OF REQUIRING PARACENTESIS. PT DENIES NEED FOR PARACENTESIS AT THIS TIME. TELEMETRY DC'D AT THIS TIME. PT DID GET UP TO CHAIR FOR LUNCH. DIFFICULTY RETURNING TO BED. REQUIRED PAIN MEDICATION. REFUSED TO WORK WITH PHYSICAL THERAPY TODAY. TESSLON PEARLS ADDED FOR COUGH TODAY. CHEST XRAY PERFORMED
--- NOTE | 2019-05-22 05:02 | NUR ---
SHIFT SUMMARY- NO ACUTE EVENTS OVERNIGHT. PT. CONTINUES TO HAVE RT HIP PAIN. PAIN MED GIVEN PER EMAR. PARACENTESIS RECOMMENDED BY PHYSICIAN, PT. REFUSING AT THIS TIME. ANTICIPATING D/C TO HOME TODAY. DENIES ANY OTHER NEEDS. CALL LIGHT WITHIN REACH AND SIDE RAILS UP X2. WILL CONT TO MONITOR.
[2019-05-22 07:42] LABS: Hematocrit 23.8 % (37.0-53.0); Hemoglobin 7.4 g/dL (13.5-17.5); Mean Corpuscular HGB 29.1 pg (26.0-34.0); Mean Corpuscular HGB Conc 31.1 g/dL (31.5-36.5); Mean Corpuscular Volume 94 fL (80-100); Mean Platelet Volume 10.1 fL (9.1-12.4); Platelet Count 102 K/mm3 (150-400); RDW Coefficient Variation 17.5 % (11.7-14.2); RDW Standard Deviation 58.6 fL (35.1-46.3); Red Blood Cell Count 2.54 M/mm3 (4.30-5.90); White Blood Cell Count 4.79 K/mm3 (4.00-11.30)
[2019-05-22 07:58] LABS: Bun/Creatinine Ratio 17.7 (12.0-20.0); Calcium, Blood 8.5 mg/dL (8.5-10.1); Creatinine, Blood 2.94 mg/dL (0.60-1.20); Potassium, Blood 4.5 mmol/L (3.5-5.5)
--- NOTE | 2019-05-22 09:35 | NUR ---
Initial palliative care consult: Geoff is a 69 year old with a history of alcoholic liver cirrohsis, anemia. He was admitted on 05/14/19 with urinary retention, ARF and abd swelling. Geoff lives alone at [facility] [place]. He reports that he has a friend who assists him with grocery shopping, cooking and cleaning. He reports that he pays his friend's rent in return for the help he receives. He has a brother and sister who live locally. His adult children and ex- live in [place]. Geoff came to [place] to be near the [place] and to seek treatment at an outpatient alcholic treatment program. He states his abdomen is feeling much better, he has had a recent paracentesis in the last two weeks and he no longer is having urinary retention. He reports his biggest concern is his R hip pain which he reports he is waiting to go to [facility] in [place] to possibly have a revision done. He stated that about 6 months ago he fell and broke his hip. He reports he did well for 2 months post op before starting to have increasing pain. He reports pain 5/10 to right hip, down from an 8/10 pre-medication. He reports that the MD is going to discharge him home today and his brother will plan to come and pick him up to take him home. He states he has a wheelchair at home and his son recently purchased him a recliner that will assist in standing him up from being seated. He feels that he is able to manage at home with the help his friend. He states he knows that he needs to stop drinking ETOH completely. Encouraged abstinence from ETOH due to his liver disease and medications that he takes. He confirmed his DNR status and states the [facility]. [facility] to obtain a copy for [facility] EMR. He plans to establish care with a new PCP at the [place], (his [facility] P[facility] no longer works there.) He also plans to followup with a [facility] MD and also with the [facility] for his hip. His states he already spoke with the hospitalist this morning and that MD plans to discharge him home with a prescription for his hip pain. He is looking forward to going home and plans to contact the [facility] for a new PCP appointment for follow up. Medical records [facility] been [facility] from the [facility]. PC to continue to follow as needed for disease process education and symptom managment.
--- NOTE | 2019-05-22 11:37 | NUR ---
CALLED DR MANCUSO REGARDING PTS IV LEAKING AND FERRLECIT TO BE INFUSED. SAID THAT IT WAS OK TO LEAVE IV OUT DUE TO PT DISCHARGING TODAY AND NOT TO WORRY ABOUT ADMINISTERING THE FERRLECIT.
--- NOTE | 2019-05-22 13:30 | NUR ---
DISCHARGE DOCTOR'S APPT THIS RN TRIED TO MAKE AN APPT FOR PT WITH VA DOCTOR, BAYLEE GRANADOS. THEY REPORTED PT IS BEING SWITCHED TO A DIFFERENT DOCTOR AND THEY ARE UNABLE TO MAKE AN APPT FOR HIM. THEY SAID THEY WILL CALL AND LEAVE A MESSAGE FOR THE NURSE TO CALL PT WITH AN APPT.
[2019-05-22] MEDS ORDERED: Spironolactone50 MG PO (14:23)
[2019-05-22] MEDS ORDERED: Augmentin 875-1 EACH PO (14:24)
--- NOTE | 2019-05-22 15:41 | NUR ---
PT DISCHARGED TO HOME WITH SON PROVIDING TRANSPORTATION. PT TO VEHICLE BY WHEELCHAIR. PT TRANSFERED TO WHEELCHAIR ON OWN. PT HAD DIFFICULT TIME STANDING TO TRANSFER DUE TO PAIN IN RT HIP. PT PROVIDED WITH DISCHARGE AND MEDICAITON INSTRUCTIONS. PT VERBALIZED UNDERSTANDING OF INSTRUCTIONS. BELONGINGS WITH PT.
== END 2019-05-22 14:47 | disposition home or self-care (01) | DRG 432 ==
LOC: ER 10:31 → MEDS 13:20
PROVIDERS: Emergency Medicine; Hospitalist; Internal Medicine Gastroenterology; ADMIT Internal Medicine
PROC: 0W9G30Z Drainage of Peritoneal Cavity with Drainage Device, Percutaneous Approach (ICD-10-PCS; 2019-05-16)
PROC: 0DB98ZX Excision of Duodenum, Via Natural or Artificial Opening Endoscopic, Diagnostic (ICD-10-PCS; principal; 2019-05-16 17:00)
DX: K70.31 Alcoholic cirrhosis of liver with ascites (principal); J18.9 Pneumonia, unspecified organism; N17.9 Acute kidney failure, unspecified; I85.00 Esophageal varices without bleeding; B37.81 Candidal esophagitis; K76.6 Portal hypertension; N18.4 Chronic kidney disease, stage 4 (severe); R33.9 Retention of urine, unspecified; I48.91 Unspecified atrial fibrillation; R06.02 Shortness of breath; K31.7 Polyp of stomach and duodenum; I27.20 Pulmonary hypertension, unspecified; I51.7 Cardiomegaly
CPT/HCPCS: 36415; 49083; 51702; 51798; 71045; 73502; 76705; 76770; 80048; 80053; 81001; 82040; 82042; 82105; 82607; 82728; 82746; 82945; 82947; 83540; 83550; 83615; 83986; 84145; 84157; 85025; 85027; 86317; 86704; 86708; 86803; 87070; 87086; 87205; 87340; 88305; 89051; 93306; 97110; 97162; 97166; 97530; 97535; 99285-25; A9270-GY; C9113; J0696; J1940; J2704; J2916; J7030; J7050; J7120; P9046

== ENCOUNTER 2019-05-24 14:20 | Inpatient (IN) | payer OTHER, MEDICARE ==
[~2019-05-24] VITALS: Ht 188 cm; Wt 110.0 kg
[~2019-05-24 14:20] MED LIST changes: +ASCO500 PO; +HYDR1TAB94 PO; +Spironolactone50 MG PO
[2019-05-24 15:03] LABS: BASOPHILS ABSOLUTE AUTO 0.06 K/mm3 (0.00-0.23); BASOPHILS PERCENT AUTO 1 % (0-2); EOSINOPHILS ABSOLUTE AUTO 0.04 K/mm3 (0.00-0.68); EOSINOPHILS PERCENT AUTO 0 % (0-6); Hematocrit 27.8 % (37.0-53.0); Hemoglobin 8.9 g/dL (13.5-17.5); IMMATURE GRAN ABSOLUTE AUTO 0.05 K/mm3 (0.00-0.10); IMMATURE GRAN PERCENT AUTO 1 % (0-1); LYMPHOCYTES ABSOLUTE AUTO 0.75 K/mm3 (0.84-5.20); LYMPHOCYTES PERCENT AUTO 8 % (21-46); MONOCYTES ABSOLUTE AUTO 1.33 K/mm3 (0.16-1.47); MONOCYTES PERCENT AUTO 15 % (4-13); Mean Corpuscular HGB 30.2 pg (26.0-34.0); Mean Corpuscular Volume 94 fL (80-100); Mean Platelet Volume 9.9 fL (9.1-12.4); NEUTROPHILS ABSOLUTE AUTO 6.93 K/mm3 (1.96-9.15); NEUTROPHILS PERCENT AUTO 76 % (41-73); Platelet Count 143 K/mm3 (150-400); RDW Coefficient Variation 17.4 % (11.7-14.2); RDW Standard Deviation 59.6 fL (35.1-46.3); Red Blood Cell Count 2.95 M/mm3 (4.30-5.90); White Blood Cell Count 9.16 K/mm3 (4.00-11.30)
[2019-05-24 15:13] LABS: Albumin, Blood 3.1 g/dL (3.4-5.0); Albumin/Globulin Ratio 0.7 (0.8-1.8); Bilirubin, Total 1.5 mg/dL (0.1-1.0); Bun/Creatinine Ratio 20.6 (12.0-20.0); Calcium, Blood 8.8 mg/dL (8.5-10.1); Creatinine, Blood 2.82 mg/dL (0.60-1.20); Globulin, Blood 4.7 g/dL (2.2-4.0); Potassium, Blood 4.6 mmol/L (3.5-5.5); Total Protein, Blood 7.8 g/dL (6.4-8.2)
[2019-05-24 16:30] LABS: International Normalized Ratio 1.19; Prothrombin Time Results 12.4 Sec (9.7-11.5)
--- NOTE | 2019-05-24 17:35 | NUR ---
REPORT: REPORT RECEIVED FROM ELIAS ANDERSON. AWAITING ARRIVAL OF PATIENT.
--- NOTE | 2019-05-24 19:39 | NUR ---
END OF SHIFT SUMMARY: PATIENT ARRIVED TO UNIT ABOUT 1755. PATIENT ALERT AND ORIENTED. PATIENT REPORTS PAIN AT A "7-8" IN RIGHT HIP, BACK, AND CHEST/RIBS. PATIENT IS SOB. FINE CRACKLES IN THE BASES OF HIS LUNGS. PATIENT IS STABLE ON 2L OF O2 VIA NC AT 99% SPO2. PATIENT HAS A PRESSURE ULCER ON HIS COCCYX. COCCYX MEPILEX PLACED. EDUCATED PATIENT ON NEED TO BE A TURN Q2HR. PATIENT REPORTS THAT IF HE STANDS, HIS LEGS WILL BUCKLE. UNABLE TO GET STANDING WEIGHT. PATIENT HAS EDEMA FROM HIS FEET TO HIS HIPS, INCLUDING SCROTAL AND PENILE. PATIENT HAS SOME EDEMA IN HIS FOREARMS. PATIENT REPORTS THAT HIS MAIN CONCERNS ARE HIS SOB AND DISCHARGE PLACEMENT. MEDICATED PER EMAR WITH IV LASIX. SOCIAL WORK CONSULTATION PLACED. PATIENT REPORTS THAT [facility] HIS RIGHT HIP.
[2019-05-25 03:47] LABS: BASOPHILS ABSOLUTE AUTO 0.06 K/mm3 (0.00-0.23); BASOPHILS PERCENT AUTO 1 % (0-2); EOSINOPHILS PERCENT AUTO 1 % (0-6); Hematocrit 26.3 % (37.0-53.0); Hemoglobin 8.3 g/dL (13.5-17.5); IMMATURE GRAN ABSOLUTE AUTO 0.05 K/mm3 (0.00-0.10); IMMATURE GRAN PERCENT AUTO 1 % (0-1); LYMPHOCYTES ABSOLUTE AUTO 1.05 K/mm3 (0.84-5.20); LYMPHOCYTES PERCENT AUTO 11 % (21-46); MONOCYTES ABSOLUTE AUTO 1.45 K/mm3 (0.16-1.47); MONOCYTES PERCENT AUTO 16 % (4-13); Mean Corpuscular HGB 30.1 pg (26.0-34.0); Mean Corpuscular HGB Conc 31.6 g/dL (31.5-36.5); Mean Corpuscular Volume 95 fL (80-100); Mean Platelet Volume 9.8 fL (9.1-12.4); NEUTROPHILS ABSOLUTE AUTO 6.49 K/mm3 (1.96-9.15); NEUTROPHILS PERCENT AUTO 71 % (41-73); Platelet Count 143 K/mm3 (150-400); RDW Coefficient Variation 17.9 % (11.7-14.2); Red Blood Cell Count 2.76 M/mm3 (4.30-5.90)
[2019-05-25 04:09] LABS: Bun/Creatinine Ratio 20.8 (12.0-20.0); Calcium, Blood 8.6 mg/dL (8.5-10.1); Creatinine, Blood 2.89 mg/dL (0.60-1.20); Potassium, Blood 4.7 mmol/L (3.5-5.5)
--- NOTE | 2019-05-25 04:27 | NUR ---
SHIFT SUMMARY AOX4. LS COARSE, SOB ON RA. PT WORE 2L NC DURING THE NIGHT. 100% O2 SAT ON 2L. NO C/O NAUSEA. PAIN IN HIP FROM PREVIOUS PINNING. 2 NORCO GIVEN @ 2230 AND 0300. 3+ EDEMA IN BLE'S, EDEMA SPREADS INTO THIGHS, GROIN AREA, ABDOMEN AND FOREARMS. PARACENTESIS PLANNED FOR THIS AM @ 0630. L FA IS SL. MEPILEX ON COCCYX IS C/D/I. TELE READS AFIB 98. VSS. DC PLAN IS PENDING PLACEMENT. PT [facility].
--- NOTE | 2019-05-25 17:56 | NUR ---
PT AOX4 AND COOPERATIVE OF CARE. PT CALLS APPROPRIATELY. PT DOESN'T LIKE TO GET OUT OF BED AND NEEDS HELP TO TURN AND BE CHANGED OR TO REPOSTION. PT IS INCONTINENT. PT HAS BEEN FEELING SOB TODAY O2 HAS BEEN GOOD 2L SAT HIGH 90s. WILL CONTINUE TO MONITOR.
[2019-05-26 04:27] LABS: Bun/Creatinine Ratio 21.7 (12.0-20.0); Calcium, Blood 8.7 mg/dL (8.5-10.1); Creatinine, Blood 3.09 mg/dL (0.60-1.20); Potassium, Blood 5.2 mmol/L (3.5-5.5)
--- NOTE | 2019-05-26 07:52 | NUR ---
SHIFT SUMMARY PATIENT PLEASENT THROUGHOUT THE NIGHT HOWEVER PATIENT REFUSED TO BE TURNED EVEN AFTER EDUCATION PROVIDED ABOUT THE RISK OF CONTINUED SKIN BREAK DOWN. PATIENT CONTINUED TO REFUSE, STATING "I'M COMFORTABLE WHERE I'M AT." PATIENT MEDICATED FOR PAIN SEVERAL TIMES LAST NIGHT. PATIENT APPEARED TO SLEEP WELL THROUGHOUT MOST OF THE NIGHT. VITAL SIGNS CHARTED. REPORT GIVEN TO ONCOMING RN.
--- NOTE | 2019-05-26 12:22 | NUR ---
PARACENTESIS ULTRASOUND CAME DOWN TO CHECK ABD FLUID COLLECTION LEVELS. SHE CALLED AND STATED THAT RADIOLOGY SAID THERE WASN'T ENOUGH FLUID TO TAP OFF. CALLED DR MANCUSO. ORDER RECEIVED TO CANCEL PARACENTESIS ORDER. CONTINUE POT.
--- NOTE | 2019-05-26 17:38 | NUR ---
EVENING NOTE PT ALERT AND ORIENTED. AFIB. VSS. PT DID NOT HAVE A PARACENTESIS TODAY. SEE PRIOR NOTE. HE HAS REFUSED TO GET OOB. TUNRING THE THE RIGHT IS VERY DIFFICULT FOR HIM D/T PAIN. MEDICATED WITH NORCO TAB X2. PT EXPRESSED PAIN IMPROVEMENT. EATING WELL. HE CONTINUES TO C/O OF SOB BUT HE TALKS CONSTANTLY WITH A STRONG, CLEAR VOICE. HE DOESN'T DESAT AT ALL. WONDERING IF HIS SOB IS MORE RELATED TO ANXIETY. CONTINUE POT.
--- NOTE | 2019-05-27 03:42 | NUR ---
ASSUMED CARE AT 1900. SEVERE ANASARCA . RT ARM EXTREMELY LARGE/ EDEMATOUS /TIGHT . REPORTS NO PAIN IN THIS ARM. LT ARM IS JUST DEPENDENT EDEMA. ABD VERY FIRM DISTENDED . NON TENDER. SCROTAL EDEMA AND REPORTS UNABLE TO PLACE URINAL AND WILL VOID IN ATTENDS. SKIN CLEANSED WELL. COCCYX W/ BREAK IN SKIN. RED PEELING SKIN.SORE.MEPILEX APPLIED. CHRONIC PAIN NEEDS MET W/ PO MED FOR PAIN. WHEEZES NOTED IN LUNGS AND SOME CRACKLES. NO DESIRE TO GET OOB . REFUSES HS SNACK. REPOSITIONED AND POOR EFFORT IF NOT AWAKENED AND TURNED. EXTREME PAIN IN CERTAIN POSITIONS DUE TO RT HIP ISSUES. REPORTS SOB AND DOES SEEM TO SHOW SOME PANTING BREATHS HE CHANGES POSITION IN BED OR HAS SUDDEN PAIN W/ MOVEMENT. DIFFICULT TO LOWER HOB FOR DISCOMFORT. CHEST SORENESS NOTED HAS NOT CHANGED SINCE ADMIT. PAIN MED TO DESIRED OR EXPECTED RELIEF. AF 90'S RATE. ENC TO TURN SELF POOR EFFORT
--- NOTE | 2019-05-27 06:00 | NUR ---
SHIFT SUMMARY. PO PAIN MED GIVEN Q 4 HR. AND TOLERABLE AND EXPECTED RELIEF PER HOME USE. INCONTINENT OF URINE , REPORTED "MY SCTOTUM IS TOO SWOLLEN TO PLACE THE URINAL". CHANGED ATTENDS ALONG W/ MEPILEX FOR COCCYX
[2019-05-27 08:48] LABS: Bun/Creatinine Ratio 20.9 (12.0-20.0); Calcium, Blood 8.7 mg/dL (8.5-10.1); Creatinine, Blood 3.59 mg/dL (0.60-1.20); Potassium, Blood 5.2 mmol/L (3.5-5.5)
--- NOTE | 2019-05-27 14:15 | NUR ---
Initial palliative care consult: Prosper was recently discharged from [facility] last week and was readmitted a couple days later. He c/o swelling, shortness of breath and not being able to care for himself. PC initial consult was documented during his last admission. [facility] [place] [facility] [place]. He reports that his son had an appointment at the [place] this morning to help him get into some different housing at the [place]. During my visit he was eating his lunch and having some SOB when eating and speaking. He reports his hip is very painful. He c/o being swollen. He states he has not been out of bed since Monday. Chart reviewed and spoke with staff. He declined to work with PT. Nursing is encouraging him to get OOB. CM is working with pt and family for a safe discharge plan at this time. He states the pain medication he is receiving helps with his pain. He has no questions or concerns at this time. AD obtained from the [place] and faxed to medical records for processing. Pt confirms his DNR status. Pt would benefit from increasing mobility and activity. PC will continue to follow for symptom management.
--- NOTE | 2019-05-27 16:25 | NUR ---
EVENING NOTE PT REFUSING ATTENDS CHECKS. REFUSING TURNING. REFUSING PT/OT TREATMENT. HE KEEPS SAYING IN AN HOUR. IN AN HOUR. VSS. EATING WELL. MEDICATED FOR RIGHT HIP/BACK PAIN X2. PT EXPRESSED PAIN IMPROVEMENT OVER TIME. FAMILY AT BEDSIDE. SON WAS HERE LEAD BUSINESS ANALYST. S[facility] WAS [facility] ABOUT [facility]ILL[facility]SING CARE. CONTINUE POT.
--- NOTE | 2019-05-28 04:53 | NUR ---
SHIFT SUMMARY. PAIN RELIEF TO CHRONIC BASE LINE NEEDS. REPORTS MOSTLY RT HIP PAIN PER REPORT OF FX AND NON SURG CANDIDTATE. ALSO SOME CHEST SORENESS FROM COUGHING. COUGH TABS GIVEN AND DOES COUGH LOOSE SECRETIONS . CRACKLES AND POOR AIR EXCHANGE NOTED IN LOWER LUNG RODRIGUEZ. AF CONTROLLED.ANASARCA VERY EXTREME. ABD VERY TIGHT. ALL NOC NOTED CHANGING CHUX UNDER= OOZING FROM SKIN POSTERIOR RT LEG. COCCYX MEPILEX IN PLACE ALL NOC WHEN ASSUMED CARE. ENC TURN/ COUGH /DEEP BREATHE. VERY LITTLE EFFORT IN DOING ANY ACTIVE ROM PER SELF AND REPORTS HE CANNOT HOLD URINAL IN PLACE DUE TO SWELLING AND SO HE WILL URINATE IN AN ATTENDS.SEVERE SCROTAL EDEMA AND CLEANSED SKIN WELL.ARMS SWOLLEN AND MOSTLY DEPENDENT EDEMA.TRIED TO ENC TO KEEP ELEVATED ON PILLOWS REPOSITIONED AWAKENED,.SO SKIN CARE.
--- NOTE | 2019-05-28 08:48 | NUR ---
OXYGEN REPLACED AT 1 L/MIN DELIVERY.
[2019-05-28 09:47] LABS: Bun/Creatinine Ratio 20.2 (12.0-20.0); Calcium, Blood 8.7 mg/dL (8.5-10.1); Creatinine, Blood 4.06 mg/dL (0.60-1.20); Potassium, Blood 5.1 mmol/L (3.5-5.5)
--- NOTE | 2019-05-28 13:07 | NUR ---
Call to Dr. Rainey regarding results of bladder scan greater than 999cc.
--- NOTE | 2019-05-28 14:00 | NUR ---
Three attempts to catheterize the patient using 14 egyptian Coude, but due to the swelling of penile tissue, unable to visualize the urethra nor to retract the swollen skin to visualize for catheter insertion. Coude continues to coil inside the pocket of what appears to be swollen foreskin; however, the pt tells me that he is circumcised. Call to Dr. Rainey to inform him of this.
--- NOTE | 2019-05-28 18:52 | NUR ---
The pt was given a bladder ultrasound, which revealed 15 cc urine in the bladder. Dr. Rainey notified. The pt was encouraged to drink fluids, per Dr. Rainey. He has hardly been eating or drinking anything at all today. The pt verbalized understanding, but he is rarely today compliant with suggestions or recommendations. Refused oral care, refused repostioning, except to be boosted higher in the bed in tamez's position, although he states that he is repostioning himself, he shows no actual ability that I have observed to do this much on his own due to the weight of his very edematous lower extremities, nor have I seen him in any other position at all today. States he is too painful in the right hip to do any sitting on the side of the bed, nor to get out of bed to a chair or bedside commode.
--- NOTE | 2019-05-28 23:49 | NUR ---
ASSUMED CARE AT 1900./ VERY FLAT AFFECT AND REFUSING TO TURN OR MOVE AT THIS TIME . MOSTLY DUE TO SUDDEN WAVE OF NAUSEA . REFUSE SOME PO MEDS AND ZOFRAN GIVEN. REFUSES TO COVER CHRONIC PAIN W/ NORCO NOW.AND FEELS RT HIP PAIN IS MOSTLY AT BASELINE. AND IS PLEADED NOT TO MOVE TO ASSIST THIS. EDUCATED ON THIS DECISION W/DEVELOPING COCCYX SORE. LATER PLACED ON BED HUGO AND AND HAD STOOL. THOROUGH CLEANSING OF COCCYX AND EXCORIATED FRAGILE SKIN. FOLLOW UP PHOTO TAKEN,.WEEPING NOTED AT RT POSTERIOR LEG. 1 L O2 LEFT ON W/ GOOD SATS. EXERTIONAL SOB NOTED. MOANS ALOT W/ ALL MOVING IN BED. NAUSEA RELIEVED NOW/ SEVERE ANASARCA AFFECTING ENTIRE BODY . ALL SKIN VERY TIGHT . PRODUCTIVE COUGH
[2019-05-29 04:49] LABS: BASOPHILS ABSOLUTE AUTO 0.05 K/mm3 (0.00-0.23); BASOPHILS PERCENT AUTO 0 % (0-2); EOSINOPHILS ABSOLUTE AUTO 0.07 K/mm3 (0.00-0.68); EOSINOPHILS PERCENT AUTO 1 % (0-6); Hematocrit 28.1 % (37.0-53.0); Hemoglobin 8.7 g/dL (13.5-17.5); IMMATURE GRAN ABSOLUTE AUTO 0.12 K/mm3 (0.00-0.10); IMMATURE GRAN PERCENT AUTO 1 % (0-1); LYMPHOCYTES ABSOLUTE AUTO 1.06 K/mm3 (0.84-5.20); LYMPHOCYTES PERCENT AUTO 8 % (21-46); MONOCYTES ABSOLUTE AUTO 1.23 K/mm3 (0.16-1.47); MONOCYTES PERCENT AUTO 9 % (4-13); Mean Corpuscular HGB 29.1 pg (26.0-34.0); Mean Corpuscular Volume 94 fL (80-100); Mean Platelet Volume 9.9 fL (9.1-12.4); NEUTROPHILS ABSOLUTE AUTO 11.35 K/mm3 (1.96-9.15); NEUTROPHILS PERCENT AUTO 82 % (41-73); Platelet Count 185 K/mm3 (150-400); RDW Coefficient Variation 17.6 % (11.7-14.2); RDW Standard Deviation 59.1 fL (35.1-46.3); Red Blood Cell Count 2.99 M/mm3 (4.30-5.90); White Blood Cell Count 13.88 K/mm3 (4.00-11.30)
[2019-05-29 05:06] LABS: Bun/Creatinine Ratio 20.2 (12.0-20.0); Calcium, Blood 8.5 mg/dL (8.5-10.1); Creatinine, Blood 4.11 mg/dL (0.60-1.20); Potassium, Blood 5.4 mmol/L (3.5-5.5)
--- NOTE | 2019-05-29 05:23 | NUR ---
PCU NOC SHIFT SUMMARY PATIENT HAS A RIMA AFFECT - ORIENTE TO SELF, LOCATION AND SITUATION. PATIENT BEDREST AT THIS TIME. ANASARCA NOTED T/O AND SEVERELY OVER TORSO, SCROTUM AND PENIS. HEART RATE REMAINED 105 AFIB WITH NO FURTHER ACUTTE EVENTS NOTED PER SHERIFF'S OFFICER. PATIENT ENCOURAGED TO MOVE FOR HIMSELF AND COUGH/DEEP BREATH.WILL CONTINUE TO ENCOURAGE PATIENT & MONITOR BEFORE REPPORT TODAY SHIFT RN.
--- NOTE | 2019-05-29 10:44 | NUR ---
This morning the pt had shown lack of enthusiasm for any activity, but spontaneously at 10 am he requested to be assisted out of bed and to the chair. He managed this without much assistance, although the gait belt and walker were used.
--- NOTE | 2019-05-29 10:51 | NUR ---
Handoff to Loyda Childress RN. The pt was up in the chair.
--- NOTE | 2019-05-29 17:23 | NUR ---
Met with patients son to review his needs. Pt son is on break with his job. His son is a vet so trying to navigate the [facility] system for his father. The patients daughter is also involved but lives in [place]. Son fears if he puts him on midcaid he will loose some of his benefits and choices. He wants to research. Gave him some information on who to contact at [place] and links on line. Suggested he go to [facility] to speak with bottom worker. Reviewed with him the trajectory of his disease. Did not susggest hospice but discussed potential son is aware they will have to make that choice and my have to change where he lives. He wishes [place] could live in his [place] apartment with care givers. Gave son our contact number as a resource.
--- NOTE | 2019-05-29 18:00 | NUR ---
ORDERS PLACED FOR TRANSFER IN HOUSE WHEN BED AVAIL. POOR APPETITE T/O DAY. APPEARS WEAK. PALLIATIVE CARE/FANCY PACKER IN WELL. SUPPORTIVE FAMILY.
--- NOTE | 2019-05-29 22:15 | NUR ---
RECEIVED FROM PCU TO 229.MED STATUS. PT IN NO ACUTE DISTRESS. RESP APPEAR EVEN AND UNLABORED. ASCITES NOTED. PT SLEEPS WHEN UNDISTURBED.
--- NOTE | 2019-05-29 22:34 | NUR ---
PCU TRANSFER TO SURGICAL UNIT PATIENT REMAINS ALERT AND ORIENTED X4 TO HIS NEEDS AND SITUATION. PATIENT VERBALIZES PAIN IN HIP AND CHEST T/O SHIFT. SLIGHTLY RELIEVED WITH MEDICATION PER EMAR. PATIENT ON 1 LPM NC FOR COMFORT OF CHEST PAIN AND SOB FEEL. VSS. REPORTED TO [facility] RN. PATIENT TRANSFERED TO SURGICAL ROOM 229 W/O COMPLICATION.
[2019-05-30 04:07] LABS: Hematocrit 28.7 % (37.0-53.0); Hemoglobin 8.7 g/dL (13.5-17.5); Mean Corpuscular HGB 29.1 pg (26.0-34.0); Mean Corpuscular HGB Conc 30.3 g/dL (31.5-36.5); Mean Corpuscular Volume 96 fL (80-100); Mean Platelet Volume 9.9 fL (9.1-12.4); Platelet Count 168 K/mm3 (150-400); RDW Coefficient Variation 17.5 % (11.7-14.2); RDW Standard Deviation 59.5 fL (35.1-46.3); Red Blood Cell Count 2.99 M/mm3 (4.30-5.90); White Blood Cell Count 14.86 K/mm3 (4.00-11.30)
[2019-05-30 04:26] LABS: Calcium, Blood 8.8 mg/dL (8.5-10.1); Creatinine, Blood 4.43 mg/dL (0.60-1.20); Potassium, Blood 5.8 mmol/L (3.5-5.5)
--- NOTE | 2019-05-30 06:14 | NUR ---
.SUMMARY PT REFUSING REPOSITIONING WHICH HAS BEEN NOTED PRIOR IN PCU.B JARRED RN SUPERVISER DRESSED WEEPING LEGS. PT SLEEPING.
--- NOTE | 2019-05-30 10:09 | NUR ---
REFUSED OOB THIS AM OR TO BE TURNED, PT AWARE OF RISKS FOR SKIN BREAKDOWN, REFUSED TO EAT BREAKFAST, CONT. TO MONITOR FOR ANY CHANGES.
--- NOTE | 2019-05-30 15:20 | NUR ---
Pt visit this afternoon. Spoke with bedside nurse Courtney and Caremannorris Burgos, discussed case and plan. Family and Pt has elected for comfort care and hospice. Pt resting in bed upon arrival. Pt raza pain at this time and reports dyspnea. SOB worsens with speaking. Confirmed Pt's wishes and educated on comfort care and hospice philosophy with V/U made by Pt. Pt confirms his wishes for comfort care and hospice. Called and spoke with daughter and separate call to son. Both verbalize understanding of comfort care and hospic philosophy and are in agreement with Pt's choice. Instructed family to contact palliative care with any questions or concerns. Called and spoke with Dr Fuentes and relayed Pt and family wishes. Dr Fuentes reports he will place comfort care order and comfort medications. Plan is for Pt to disharge to [facility] on hospice. Palliative Care will remain available.
--- NOTE | 2019-05-30 15:38 | NUR ---
PT HAS DECIDED HE WOULD LIKE COMFORT MEASURES WHILE IN HOSPITAL AND THEN GO TO OR [facility] FOR HOSPICE CARE, PT STATES HE HAS DISCUSSED THIS WITH HIS SON AND FAMILY, PALLIATIVE CARE HERE TO SEE PT AND DR. YOUNGBLOOD AWARE, SEE NEW ORDERS, PT NOW C/O SOB AND PAIN, ROXANOL GIVEN, RT TO CONSULT, CONINUE TO MONITOR FOR ANY CHANGES.
--- NOTE | 2019-05-30 18:01 | NUR ---
SUMMARY VISITING WITH FAMILY, MEDICATED FOR PAIN, LASIX GIVEN FOR C/O SOB, PT REPORTS HAVING ADEQUATE CONTROL OF PAIN WITH ROXANOL FOR NOW, CONT. COMFORT MEASURES, PT SITTING UP IN BED WITH O2 ON FOR COMFORT, ATE VERY LITTLE TODAY, PLAN FOR DC TO [facility] TOMORROW ON HOSPICE.
--- NOTE | 2019-05-30 18:42 | NUR ---
review of pt with nursing and medication requested for fluid reduction
--- NOTE | 2019-05-30 22:02 | NUR ---
COMFORT CARE - NOC PATIENT COMFORTABLE AT THIS TIME. DENIES ANY NEEDS. REFUSES TO BE TURNED AT THIS TIME. DENIES ANY NEEDS AT THIS TIME. CALL LIGHT W/I REACH. REMAINS ALERT AND ORIENTED X4.
--- NOTE | 2019-05-30 23:26 | NUR ---
ASSUMED CARE OF PT. ATTENDS CHANGED, SKIN CLEANED AND PT REPOSITIONED ON RIGHT SIDE. DENIES ANY OTHER COMPLAINTS.
--- NOTE | 2019-05-31 09:07 | NUR ---
PT TRYING TO EAT BREAKFAST THIS AM, REPORST HAVING SOB BUT NO DYSPNEA NOTED, MEDICATED FOR PAIN, STATES HE FEELS "NOT TOO GOOD" PT IS CHOOSING ITEMS ON THE MENU FOR LUNCH AND DINNER, DENIES ANY OTHER DISCOMFORT, CONT. COMFORT MEASURES.
--- NOTE | 2019-05-31 10:01 | NUR ---
pt taking po more rest still dyspnea but able to sleep more.
--- NOTE | 2019-05-31 12:35 | NUR ---
REPORT GIVEN TO ELIAS LOPEZ, AT [facility].
--- NOTE | 2019-05-31 13:21 | NUR ---
JASON'D TO HEALTH SYSTEM VIA GURNEY TRANSPORT.
== END 2019-05-31 13:13 | disposition hospice, inpatient (51) | DRG 433 ==
LOC: ER 14:20 → PCU 14:21 → SURS 05-29 22:00
PROVIDERS: Emergency Medicine; Internal Medicine; ADMIT Hospitalist
DX: K70.31 Alcoholic cirrhosis of liver with ascites (principal); N18.4 Chronic kidney disease, stage 4 (severe); I85.00 Esophageal varices without bleeding; Z87.891 Personal history of nicotine dependence; Z66 Do not resuscitate; Z51.5 Encounter for palliative care
CPT/HCPCS: 36415; 51703; 71045; 71046; 76705; 76857; 80048; 80053; 82140; 85025; 85027; 85610; 85730; 93005; 93010; 94640; 94667; 94760; 96361; 96374; 96375; 96376; 97110; 97162; 97530; 99285-25; A9270-GY; C9113; G0378; J1940; J2405; J3010; J7040